=== PATIENT | male | born 1990 | race Caucasian/White ===

== ENCOUNTER 2020-03-25 06:28 | Emergency (ER) | payer BC, SELFPAY ==
[2020-03-25 06:40] VITALS: BP 166/77; PULSE 124; RESP 26; TEMP 38.1; O2SAT 97; BMI 41.7
--- NOTE | 2020-03-25 06:53 | XRR_ITS ---
PROCEDURE INFORMATION: Exam: XR Chest, 1 View Exam date and time: 03/25/2020 6:54 AM Age: 29 years old Clinical indication: Cough and dyspnea; Additional info: Dyspnea/cough TECHNIQUE: Imaging protocol: XR of the chest Views: 1 view. COMPARISON: CR Chest 1 [place] [id number] 10/28/2018 9:28 AM FINDINGS: Lungs: Slightly increased lung markings particularly in right infrahilar region could be early infiltrate. Pleural spaces: Unremarkable. No pleural effusion. No pneumothorax. Heart/Mediastinum: No significant cardiomegaly. Bones/joints: No acute finding. XR/XR chest 1V portable [id number] IMPRESSION: Increased lung markings in right lower lobe could be early infiltrate.
--- NOTE | 2020-03-25 06:54 | ED_ITS ---
HPI - COVID General: Chief Complaint: COVID symptoms Stated Complaint: Weakness/N/SOB/Chills Time Seen by Provider: 03/25/20 06:37 Triage information: Has fever, cough or shortness of breath . Exposure to COVID + person last 14 days History of Present Illness: HPI Narrative: 29-year-old male presents emergency room complaining of cough fever nausea shortness of breath generally not feeling well began yesterday. Blood pressure is elevated, he has not taken his antihypertensives today. He is not had any significant shortness of breath. MD complaint: reported COVID exposure and has COVID symptoms Prior covid testing: no Prior testing date: 03/24/20 COVID 19 common symptoms: positive fever(s), chills, non-productive cough, headache(s), throat pain and nasal congestion; negative dyspnea, nausea, vomiting or diarrhea COVID 19 other sytmptoms: negative chest pain, requiring oxygen or respiratory distress Onset (ago): day(s) (1) Severity: mild Pertinent comorbid conditions: hypertension Treatment prior to arrival: none COVID Results: Nasal/Oral Coronavirus 2019 PCR Not detected 03/25/20 07:04 03/25/20 Review of Systems Const: Reports: fever(s) and chills ENMT: Reports: throat pain and nasal congestion Card: Denies: chest pain, edema, dyspnea on exertion or orthopnea Resp: Reports: non-productive cough; Denies: dyspnea GI: Denies: abdominal pain, nausea, vomiting, hematemesis, coffee ground emesis, diarrhea, constipation, bloating, hematochezia or melena : Denies: flank pain, dysuria, urinary frequency or urinary urgency Skin/Breast: Denies: rash or pruritus Neuro: Reports: headache(s) PFS ED PFSH: Medical History (Updated 03/25/20 @ 07:49 by Yeison Zepeda DO) Hypertension Physical Exam Const: COMMON NORMALS: no acute distress GENERAL APPEARANCE: cooperative and comfortable ORIENTATION/CONSCIOUSNESS: Yes awake, Yes oriented to person, Yes oriented to place and Yes oriented to time HENMT: COMMON NORMALS: normocephalic, atraumatic, hearing grossly normal bilaterally, external ears normal, EAC's normal, TM's normal bilaterally, Normal nasal mucous membranes and turbinates present, moist oral mucous membranes and oropharynx normal HEAD & SCALP: normocephalic and atraumatic NOSE: Normal nasal mucous membranes and turbinates present EXTERNAL EAR: Yes external ears normal EXTERNAL AUDITORY CANAL: EAC's normal TYMPANIC MEMBRANE: TM's norm al bilaterally Eye: COMMON NORMALS: Equal, round and reactive pupils present, EOMs intact bilaterally, conjunctivae normal and no scleral icterus CONJUNCTIVA: Yes conjunctivae normal PUPIL: Yes Equal, round and reactive pupils present Neck/C-Spine: COMMON NORMALS: full ROM, no lymphadenopathy, supple and no JVD Lymph: LYMPHATIC: no lymphadenopathy noted and no lymphedema noted Resp: COMMON NORMALS: normal respiratory effort, No retractions, No use of accessory muscles and clear to auscultation bilaterally AUSCULTATION: clear to auscultation bilaterally Cardio: COMMON NORMALS: no JVD, regular rate, regular rhythm and No murmurs present (Cardio) RATE: regular rate RHYTHM: regular rhythm GI: COMMON NORMALS: Soft to palpation and No hepatosplenomegaly present AUSCULTATION: Yes normoactive bowel sounds PALPATION: Yes Soft to palpation, No Tenderness to palpation present (GI), No Guarding due to palpation present (GI) and Yes No hepatosplenomegaly present Extremity: COMMON NORMALS: normal to inspection, capillary refill normal, no clubbing, cyanosis or edema, no calf tenderness and no pedal edema Neuro: SENSORIUM/ORIENTATION: Yes oriented to person, Yes oriented to place and Yes oriented to time Skin: COMMON NORMALS: no rashes or lesions noted GENERAL SKIN EXAM: no rashes or lesions noted Course Vital Signs: Vital signs: Vital Signs Temperature 100.5 F H 03/25/20 06:40 Pulse Rate 105 H 03/25/20 08:09 Respiratory Rate 26 H 03/25/20 06:40 Blood Pressure 148/75 03/25/20 08:09 Pulse Oximetry 97 03/25/20 08:09 MDM - COVID MDM Narrative: Medical decision making narrative: Strep test positive will treat for strep pharyngitis PCR pending follow-up as worsening problems breathing Lab Data: Labs: Lab Results 03/25/20 03/25/20 Range/Units 07:04 07:04 Nasal/Oral COVID-1 9 PCR Not detected Group A Strep Rapi d Positive H (Negative) COVID Results: Nasal/Oral Coronavirus 2019 PCR Not detected 03/25/20 07:04 03/25/20 Discharge Plan Discharge Patient Disposition: Home Clinical Impression: Strep pharyngitis, Suspected 2019-nCoV infection Condition: Stable Prescriptions: New amoxicillin 875 mg tablet 875 mg PO BID Qty: 20 RF: 0 Discharge Orders: Discharge ED (Routine); Ordered 03/25/20 Ordered By: Yeison Zepeda Discharge Diet: Usual diet Discharge Activity: Increase activity as tolerated Activity Restrictions/Additional Instructions: Antibiotics for the strep recommend maintain self quarantine until your final Covid swab is back. Coding Level of Care Code ED Appraisal Technician for Edna Fwd Exam Comprehensive
[2020-03-25 07:03] VITALS: O2SAT 97
[2020-03-25 07:20] LABS: Rapid Strep A Test Positive (Negative)
[2020-03-25 08:09] VITALS: BP 148/75; PULSE 105; O2SAT 97
[2020-03-25 14:50] LABS: Coronavirus Test Green County Not Detected
--- NOTE | 2020-03-25 18:35 | PC.NURSE ---
Pt called and notified of negative COVID result
== END 2020-03-25 08:09 | disposition home or self-care (01) ==
PROVIDERS: Emergency Provider Family Medicine
DX: J02.0 Streptococcal pharyngitis (principal); Z20.822 Contact with and (suspected) exposure to COVID-19; I10 Essential (primary) hypertension
CPT/HCPCS: 12345; 71045; 87635; 87880; 99281; 99283

== ENCOUNTER 2020-05-08 12:12 | Outpatient (CLI) | payer BC, SELFPAY ==
--- NOTE | 2020-05-08 12:24 | XR_ITS ---
WS: [id number] XR femur RT min 2V* [id number] REASON FOR EXAM: UNSPECIFIED FX OF R FEMUR/CLOSED FX W/ROUTINE HEALING FINDINGS: Intramedullary niurka fixation of proximal femur fracture with well-organized healed callus formation. No soft tissue abnormality. XR/XR femur RT min 2V* [id number] IMPRESSION: Status post intramedullary niurka fixation of femur fracture without abnormality.
== END 2020-05-08 12:13 | disposition home or self-care (01) ==
LOC: RAD 12:16
PROVIDERS: Visit Provider Family Medicine
DX: S72.91XA Unspecified fracture of right femur, initial encounter for closed fracture (principal); X58.XXXA Exposure to other specified factors, initial encounter
CPT/HCPCS: 73552

== ENCOUNTER 2020-09-22 09:34 | Emergency (ER) | payer BC, SELFPAY ==
[2020-09-22 09:52] VITALS: BP 168/88; PULSE 70; RESP 16; TEMP 36.4; O2SAT 96; BMI 39.9
[2020-09-22] MEDS: sodium chloride 0.9% 1,000 ML 999 ML IV (10:12)
[2020-09-22] MEDS: ondansetron 2 mg/ML SDV 2 mL 4 MG IVP (10:13)
[2020-09-22] MEDS: meclizine 25 mg tablet 50 MG PO (10:13)
--- NOTE | 2020-09-22 10:15 | ED_ITS ---
HPI - Dizziness General: Chief Complaint: Dizziness Stated Complaint: N/V, dizziness Time Seen by Provider: 09/22/20 09:57 Source: patient Mode of arrival: ambulatory Limitations: no limitations History of Present Illness: HPI Narrative: 30-year-old male states over the last 2 days he has been having vertigo. He states that he gets extreme dizziness and the room is spinning with any movement. He states he is also had nausea vomiting with this. He states it improves with rest. He denies any having any history of this in the past. Denies any worsening improving factors. Denies headache. Associated symptoms: Reports nausea and vomiting; Denies chest pain, chills or headache(s) Review of Systems Const: Denies: fever(s), chills, body aches or change in appetite Eyes: Denies: blurry vision or eye discomfort ENMT: Denies: throat pain or dental pain Card: Denies: chest pain Resp: Denies: dyspnea GI: Reports: nausea and vomiting; Denies: abdominal pain or diarrhea : Denies: dysuria Musc: Denies: neck pain or back pain Skin/Breast: Denies: rash Neuro: Reports: dizziness and vertigo; Denies: headache(s) Psych: Denies: depression Chris/Lymph: Denies: easy bruising All/Imm: Denies: urticaria PFSH ED PFSH: Medical History (Updated 09/22/20 @ 10:54 by Craig De Jesus MD) Hypertension Physical Exam Const: COMMON NORMALS: no acute distress, patient oriented x3 and healthy appearing HENMT: COMMON NORMALS: normocephalic and atraumatic HEAD & SCALP: normocephalic and atraumatic Eye: COMMON NORMALS: Equal, round and reactive pupils present and EOMs intact bilaterally PUPIL: Yes Equal, round and reactive pupils present Neck/C-Spine: COMMON NORMALS: full ROM and supple Chest: COMMONS NORMALS: normal inspection of the chest and normal palpation of entire chest wall Resp: COMMON NORMALS: normal respiratory effort, No retractions, No use of accessory muscles and clear to auscultation bilaterally AUSCULTATION: clear to auscultation bilaterally Cardio: COMMON NORMALS: regular rate, regular rhythm and No murmurs present (Cardio) RATE: regular rate RHYTHM: regular rhythm GI: COMMON NORMALS: Normal to inspection, nondistended, normoactive bowel sounds present, Soft to palpation, non-tender and no masses PALPATION: Yes Soft to palpation Extremity: COMMON NORMALS: normal to inspection and full ROM Neuro: COMMON NORMALS: patient oriented x3, moves all extremities and no focal motor deficits Psych: COMMON NORMALS: mental status grossly normal, Normal thought process present and cooperative THOUGHT PROCESS: Normal thought process present Skin: COMMON NORMALS: no rashes or lesions noted and no wounds GENERAL SKIN EXAM: no rashes or lesions noted Course Vital Signs: Vital signs: Vital Signs Temperature 97.6 F 09/22/20 09:52 Pulse Rate 70 09/22/20 09:52 Respiratory Rate 16 09/22/20 09:52 Blood Pressure 168/88 09/22/20 09:52 Pulse Oximetry 96 09/22/20 09:52 MDM - Dizziness MDM Narrative: Medical decision making narrative: Patient presents here with vertigo that is much improved here with meclizine. I had and ambulate the halls and he is symptom-free currently. I believe this is likely peripheral in nature and he has no signs of acute stroke. We will write him meclizine for home along with Ant. He is to follow-up his PCP and return if worsening. He understands agrees to plan. Lab Data: Labs: Lab Results 09/22/20 09/22/20 Range/Units 10:08 10:08 WBC 11.3 H (4.0-10.0) 10^3/ uL RBC 5.43 H (4.1-5.3) 10^6/u L Hgb 15.5 (11.7-16.6) g/dL Hct 46.3 (42.0-52.0) % MCV 85.3 (80-94) fL MCH 28.5 (28.0-34.0) pg MCHC 33.5 (30.0-36.0) g/dL RDW 12.4 (12.1-15.1) % Plt Count 261 (130-400) 10^3/c mm MPV 9.7 (7.4-10.4) fL Neut % (Auto) 69.7 % Lymph % (Auto) 23.9 % Pender % (Auto) 4.4 % Eos % (Auto) 1.0 % Baso % (Auto) 0.4 % Neut # (Auto) 7.85 H (1.8-7.7) 10^3/u L Lymph # (Auto) 2.7 (0.8-4.8) 10^3/u L Pender # (Auto) 0.5 (0.2-0.9) 10^3/u L Eos # (Auto) 0.1 (0.0-0.8) 10^3/u L Baso # (Auto) 0.0 (0.0-0.1) 10^3/u L Nucleated RBC % (a uto) 0 % Nucleated RBCs # 0.0 /100WBC Sodium 132 L (136-145) mmol/L Potassium 3.9 (3.5-5.1) mmol/L Chloride 96 L (98-107) mmol/L Carbon Dioxide 26 (22-29) mmol/L Anion Gap 13.9 (5-19) BUN 12 (6-20) mg/dL Creatinine 0.7 (0.7-1.2) mg/dL GFR Calculation 133.3 H (90-130) mL/min Glucose 117 H (65-115) mg/dL Calculated Osmolal ity 275 L (285-295) mOsm/k g Calcium 8.9 (8.5-10.5) mg/dL Total Bilirubin 0.5 (0.15-1.2) mg/dL AST 26 (0-40) U/L ALT 41 (0-41) U/L Alkaline Phosphata se 60 (40-130) IU/L Total Protein 7.7 (6.6-8.7) g/dL Albumin 4.4 (3.5-5.2) g/dL Globulin 3.3 (1.3-4.6) g/dL Lipase 16 (13-60) U/L Discharge Plan Discharge Patient Disposition: Home Clinical Impression: Benign paroxysmal positional vertigo Qualifiers: Laterality: unspecified laterality Qualified Code(s): H81.10 - Benign paroxysmal vertigo, unspecified ear Condition: Stable Prescriptions: New meclizine 25 mg tablet 25 mg PO TID PRN (Reason: vertigo) Qty: 20 RF: 1 ondansetron 4 mg tablet,disintegrating 4 mg PO Q6H PRN (Reason: nausea and vomiting) Qty: 14 RF: 0 Valium 5 mg tablet 5 mg PO BID PRN (Reason: vertigo) Qty: 5 RF: 0 No Action amoxicillin 875 mg tablet 875 mg PO BID Qty: 20 RF: 0 Discharge Orders: Discharge ED (Routine); Ordered 09/22/20 Ordered By: Craig De Jesus Discharge Diet: Advance as tolerated Discharge Activity: Resume usual activity Patient Instructions: Vertigo (ED), Benign Paroxysmal Positional Vertigo (ED) Stand Alone Forms: Work/School Release Coding Level of Care Code ED Senior Technical Writer for Chg Fwd Exam Comprehensive
[2020-09-22 10:16] LABS: Basophils % 0.4 %; Eosinophils # 0.1 10^3/uL (0.0-0.8); Hematocrit 46.3 % (42.0-52.0); Hemoglobin 15.5 g/dL (11.7-16.6); Lymphocytes # 2.7 10^3/uL (0.8-4.8); Lymphocytes % 23.9 %; Mean Corpuscular HGB Conc 33.5 g/dL (30.0-36.0); Mean Corpuscular Hemoglobin 28.5 pg (28.0-34.0); Mean Corpuscular Volume 85.3 fL (80-94); Mean Platelet Volume 9.7 fL (7.4-10.4); Monocytes # 0.5 10^3/uL (0.2-0.9); Monocytes % 4.4 %; Neutrophils # 7.85 10^3/uL (1.8-7.7); Neutrophils % 69.7 %; Nucleated Red Blood Cells % 0 %; Platelet Count 261 10^3/cmm (130-400); Red Blood Count 5.43 10^6/uL (4.1-5.3); Red Cell Distribution Width 12.4 % (12.1-15.1); White Blood Count 11.3 10^3/uL (4.0-10.0)
[2020-09-22 10:34] LABS: Alanine Aminotransferase 41 U/L (0-41); Albumin Level 4.4 g/dL (3.5-5.2); Alkaline Phosphatase 60 IU/L (40-130); Anion Gap 13.9 (5-19); Aspartate Amino Transferase 26 U/L (0-40); Blood Urea Nitrogen 12 mg/dL (6-20); Calcium 8.9 mg/dL (8.5-10.5); Carbon Dioxide 26 mmol/L (22-29); Chloride 96 mmol/L (98-107); Globulin 3.3 g/dL (1.3-4.6); Glomerular Filtration Rate 133.3 mL/min (90-130); Glucose 117 mg/dL (65-115); Lipase 16 U/L (13-60); Osmolality Calculated 275 mOsm/kg (285-295); Potassium 3.9 mmol/L (3.5-5.1); Sodium 132 mmol/L (136-145); Total Bilirubin 0.5 mg/dL (0.15-1.2); Total Protein 7.7 g/dL (6.6-8.7)
[2020-09-22 11:14] VITALS: BP 151/83; PULSE 60; RESP 14; O2SAT 95
== END 2020-09-22 11:15 | disposition home or self-care (01) ==
PROVIDERS: Emergency Provider Emergency Medicine; PCP Family Medicine
DX: H81.10 Benign paroxysmal vertigo, unspecified ear (principal); I10 Essential (primary) hypertension
CPT/HCPCS: 80053; 83690; 85025; 96361; 96374; 99283; J2405; J7030; J8597

== ENCOUNTER → 2022-09-30 12:03 | Outpatient (BNVA) | payer OTHER, SELFPAY | PROVIDERS: PCP Family Medicine; Visit Provider Family Medicine | DX: Z51.81 Encounter for therapeutic drug level monitoring (principal); Z13.1 Encounter for screening for diabetes mellitus; Z13.220 Encounter for screening for lipoid disorders; E03.9 Hypothyroidism, unspecified | CPT/HCPCS: 80053; 80061; 83036; 83721; 84443; 85025 ==